=== PATIENT | male | born 1955 | race Caucasian/White ===

== ENCOUNTER → 2017-12-18 | Day surgery (SDC) | payer BC ==
[2017-12-13 16:52] LABS: ANION GAP 13.8 mmol/L (8-16); BLOOD UREA NITROGEN 11 mg/dL (7-26); BUN/CREATININE RATIO 13 (6-25); CALCIUM 9.5 mg/dL (8.4-10.2); CARBON DIOXIDE 25 mmol/L (22-29); CHLORIDE 104 mmol/L (98-107); CREATININE, SERUM 0.82 mg/dL (0.72-1.25); EST GLOMERULAR FILTRATION RATE > 60 ML/MIN (60-); GLUCOSE 94 mg/dL (74-118); POTASSIUM 3.8 mmol/L (3.5-5.1); SODIUM 139 mmol/L (136-145)
[~2017-12-18] MED LIST: BUPIVACAINE HCL 0.5% INJ 30 ML VIAL INJ ONE; CENTRUM SILVER1 EAC3 PO; CLINDAMYCIN 600MG/D5W 50ML 50 ML IV ONE; CLONIDINE HCL0.2 MG PO; DEXAMETHASONE SOD PHOS INJ 4 MG/ML VIAL ONE; FENTANYL CITRATE/PF 100MCG/2 ML INJ ONE; GLUCOSAMINE &1 EAC1 PO; KETOROLAC TROMETHAMINE 30 MG/ML VIAL ONE; LIDOCAINE HCL 2% LOCAL INJ 5 ML SDV VIAL INJ ONE; LOSARTAN-HCTZ1 EAC2 PO; MIDAZOLAM HCL 2 MG/2 ML VIAL ONE; MUPIROCIN 2% OINT 22 GM TUBE ONE; ONDANSETRON HCL INJ 2 MG/ML VIAL ONE; PROPOFOL IV EMULSION 10 MG/ML 20 ML VIAL ONE; SEVOFLURANE INHAL SOLN 250 ML PEN BTL ONE; VITAMIN D1000 UNI1 PO
--- NOTE | 2017-12-19 08:33 | Operative Report ---
DATE OF PROCEDURE: December 18, 2017 PREOPERATIVE DIAGNOSES 1. Dupuytren's contracture, right little finger. 2. Dupuytren's contracture, right ring finger. 3. Dupuytren's contracture, right thumb. 4. Right index finger stenosing tenosynovitis. POSTOPERATIVE DIAGNOSES 1. Dupuytren's contracture, right little finger. 2. Dupuytren's contracture, right ring finger. 3. Dupuytren's contracture, right thumb. 4. Right index finger stenosing tenosynovitis. PROCEDURES 1. Excision of Dupuytren's cord, palm and finger, right little finger. 2. Excision of palmar cord, right ring finger. 3. Excision of palmar cord, right thumb. 4. Tenovaginotomy, right index finger. ANESTHESIA: General. HISTORY: The patient is a 62-year-old right-hand dominant male with PIP joint contracture of the right little finger secondary Dupuytren's contracture. He has well-formed cords to the ring and thumb as well. He also has locking of the right index finger. The risks, benefits and alternatives of treatment were discussed with the patient. He is prepared to undergo the procedures outlined. DETAILS OF PROCEDURE: Patient was marked preoperatively in the holding area. He was brought to the operating theater. After the induction of adequate general anesthesia, he was prepped and draped in a supine position and a time out was performed. The procedure was begun on the little finger first. The cord was marked out in the proximal palm and traced down to the level of the middle phalanx. The cord to the right ring finger was marked out in the palm. The cord to the right thumb was marked out in the palm, and the incision over the A1 doris was marked out over the right index finger A1 doris at the MP joint. The right upper extremity was exsanguinated and tourniquet inflated to a pressure of 250 mmHg. The incision for the right little finger was made first proximally in the palm. The incision was carried through the skin and the dermis until the cord was identified. Using sharp dissection, the skin was elevated off of the cord from the palm all the way to the level of the middle phalanx. At this point, the cord is transected proximally in the palm and elevated out of the plane of the palm. The radial and ulnar neurovascular bundles were identified, and keeping these in view and protected, the dissection continued from proximal to distal. The cord was resected including all of its vertical extensions until it is terminated at the level of the middle phalanx. Cord is sent for permanent pathologic examination. The incision over the cord to the right ring finger is made through the skin and the dermis. Using sharp dissection, the skin was elevated off the cord. The cord terminates just prior to the MP joint, and the cord was then resect in its entirety and sent for permanent pathologic examination. The incision over the right index A1 doris is made through the skin and subcutaneous tissues. All venous tributaries were controlled with the bipolar cautery. The incision is deepened through the palmar fascia until the A1 doris was identified. The A1 doris was sectioned taking care to protect and preserve the flexor tendons within the sheath. The finger was placed through a range of motion and there was noted to be good gliding with no locking. The incision to the right thumb palmar cord is located over the thenar eminence. The incision was made through the skin and the dermis, and the skin flaps were reflected off of the palmar cord. Small venous tributaries were controlled with bipolar cautery. The cord is identified and then transected and removed from proximal to distal. At this point, the tourniquet was deflated and pressure maintained on the incisions. At this point, inspection of the incision reveals all the bleeding points, which are coapted using the bipolar cautery. The wounds were irrigated with bacteriostatic saline and checked for hemostasis once again. Then they were closed with 5-0 nylon in an interrupted horizontal mattress fashion. At the completion of the incisions, Marcaine field blocks were performed at all the operative site using 0.5% plain Marcaine. Sterile bulking conforming bandages were applied to the hand, wrist and forearm. Patient tolerated the procedure well. The fingers pinked up nicely at the deflation of the tourniquet. The patient is returned to the recovery room in satisfactory condition and discharged with a postoperative instruction sheet, as well as a followup appointment. Job#: [id number] EDILMA
== END | disposition home or self-care (01) ==
LOC: OR 05:41
PROVIDERS: ATTEND Plastic Surgery
DX: M72.0 Palmar fascial fibromatosis [Dupuytren] (principal); M65.321 Trigger finger, right index finger; I10 Essential (primary) hypertension; D75.9 Disease of blood and blood-forming organs, unspecified; Z01.810 Encounter for preprocedural cardiovascular examination; Z01.812 Encounter for preprocedural laboratory examination; Z86.19 Personal history of other infectious and parasitic diseases
CPT/HCPCS: 26055; 26123; 26125 ×2; 36415; 80048; 88304; 93005; J1100; J1885; J2001; J2250; J2405

== ENCOUNTER 2018-01-18 14:57 | Outpatient (RCR) | payer BC ==
[~2018-01-18 14:57] MED LIST changes: -BUPIVACAINE HCL 0.5% INJ 30 ML VIAL INJ ONE; -CLINDAMYCIN 600MG/D5W 50ML 50 ML IV ONE; -DEXAMETHASONE SOD PHOS INJ 4 MG/ML VIAL ONE; -FENTANYL CITRATE/PF 100MCG/2 ML INJ ONE; -KETOROLAC TROMETHAMINE 30 MG/ML VIAL ONE; -LIDOCAINE HCL 2% LOCAL INJ 5 ML SDV VIAL INJ ONE; -MIDAZOLAM HCL 2 MG/2 ML VIAL ONE; -MUPIROCIN 2% OINT 22 GM TUBE ONE; -ONDANSETRON HCL INJ 2 MG/ML VIAL ONE; -PROPOFOL IV EMULSION 10 MG/ML 20 ML VIAL ONE; -SEVOFLURANE INHAL SOLN 250 ML PEN BTL ONE
== END 2018-01-29 ==
LOC: OT 14:57
PROVIDERS: ATTEND Plastic Surgery
DX: M72.0 Palmar fascial fibromatosis [Dupuytren] (principal); M79.641 Pain in right hand; M25.641 Stiffness of right hand, not elsewhere classified
CPT/HCPCS: 97139

== ENCOUNTER → 2019-05-21 | Outpatient (CLI) | payer BC ==
--- NOTE | 2019-05-21 09:20 | Diagnostic Imaging Report ---
Exam: Testicular ultrasound. Clinical History: Hydrocele Findings: Sonographic evaluation of the testicles with cadet scale, color flow, and doppler waveform analysis. Both testes are normal in echogenicity and size without intratesticular mass. Normal symmetric blood flow without evidence of testicular torsion. Right: The right testicle measures 4.9 x 2.4 x 3.1 cm. The right epididymis measures 1.5 x 0.7 x 1.1 cm and contains a 7 x 5 x 6 mm spermatocele. Moderate right hydrocele. No varicocele. Left: The left testicle measures 4.5 x 2.8 x 2.9 cm. The left epididymis measures 1.0 x 0.6 x 1.0 cm and appears unremarkable. Large left hydrocele. No varicocele. Impression: No testicular torsion. Large left and moderate right hydroceles. No varicoceles. Small right spermatocele. Signed by: Jeanie Sinclair MD on 05/21/2019 9:17 AM
== END ==
LOC: US 07:40
PROVIDERS: ATTEND Family Medicine
DX: N43.3 Hydrocele, unspecified (principal)
CPT/HCPCS: 76870; 93976